=== PATIENT | male | born 1950 | race Caucasian/White ===

== ENCOUNTER 2016-11-10 00:05 | Inpatient (IN) | payer OTHER ==
[2016-11-10 12:59] LABS: ADD MORPH? NO; FRAGMENT RBC FLAG 0 (0-99); HEMOGLOBIN 15.3 g/dL (13.7-17.5); LEFT SHIFT FLG 0 (0-99); LIPEMIA HEMOLYSIS FLAG 90 (0-99); MEAN CELL HEMOGLOBIN 33.2 pg (27.9-34.1); MEAN CELL HEMOGLOBIN CONCENTR. 35.6 g/dL (32.4-36.7); MEAN CELL VOLUME 93.3 fL (81.5-99.8); MEAN PLATELET VOLUME 9.5 fL (8.7-11.7); PLATELET CLUMPS FLAG 0 (0-99); PLATELET COUNT 191 10^3/uL (150-400); RED BLOOD CELL COUNT 4.61 10^6/uL (4.40-6.38); RED CELL DISTRIBUTION WIDTH 13.1 % (11.5-15.2)
[2016-11-10 13:01] LABS: ATYPICAL LYMPHOCYTE FLAG 240 (0-99)
--- NOTE | 2016-11-10 13:10 | CPEKG ---
Heart Rate: 125 RR Interval: 480 QRSD Interval: 84 QT Interval: 312 QTC Interval: 450 QRS [place]: 82 T Wave [place]: 36 EKG Severity - ABNORMAL ECG - EKG Impression: ATRIAL FIBRILLATION, V-RATE 72-158 EKG Impression: BORDERLINE RIGHT AXIS DEVIATION Electronically Signed By: Khalif Kang 10-Nov-2016 14:38:08
[2016-11-10 13:19] LABS: APTT 28.3 SEC (23.0-38.0); INR 1.18 (0.83-1.16)
[2016-11-10 13:22] LABS: ANION GAP 8 mEq/L (8-16); CALCIUM 9.3 mg/dL (8.5-10.4); CARBON DIOXIDE 23 mEq/l (22-31); CHLORIDE 106 mEq/L (97-110); CREATININE 0.9 mg/dL (0.7-1.3); GLOMERULAR FILTRATION RATE > 60; GLUCOSE 93 mg/dL (70-100); MAGNESIUM 2.1 mg/dL (1.6-2.3); POTASSIUM 4.6 mEq/L (3.5-5.2); SODIUM 137 mEq/L (134-144)
[2016-11-10 13:35] LABS: ADD DIFF? YES; ADD SCAN? NO; SCAN POSITIVE
[2016-11-10 13:42] LABS: MACROCYTES 1+; MICROCYTES 1+; PLATELET ESTIMATE ADEQUATE (ADEQ)
[2016-11-10] MEDS ORDERED: SOTALOL HCL 80 MG TAB PO ONE ×2 (13:45→23:00)
--- NOTE | 2016-11-10 14:46 | GHP ---
DATE OF ADMISSION: 11/10/2016 PRIMARY RESIDENTIAL MANAGER: Dr. Mandie Joseph. PRIMARY EP DOCTOR: Dr. Ozzy Vincent. CHIEF COMPLAINT: Persistent atrial fibrillation. HISTORY OF PRESENT ILLNESS: The patient is a 66-year-old male with a history of microscopic colitis, PAWAN, moderate to severe TR, moderate MR, who is being admitted for sotalol titration. He has had recent persistent atrial fibrillation, despite having DC cardioversion. He has been noting increased fatigue and shortness of breath, being in atrial fibrillation though he has been on rate-controlling agent with Diltizem. He continues to have atrial fibrillation with RVR. He denies any chest pain. He has had a coronary catheterization that shows normal coronary arteries. He denies any PND or orthopnea. PAST MEDICAL HISTORY: 1. Persistent atrial fibrillation. 2. GERD. 3. Microscopic colitis. 4. PAWAN. 5. Moderate MR. 6. Moderate to severe TR. SOCIAL HISTORY: He is , and his is present in the room. He has 2 children. He is retired. He reports no tobacco products. He reports moderate alcohol intake. FAMILY HISTORY: Positive for stroke. MEDICATIONS: Outpatient medications include budesonide, Eliquis, omega-3 fatty acids, and a daily vitamin. ALLERGIES: Levaquin and penicillin. PAST SURGICAL HISTORY: Inguinal hernia repair. REVIEW OF SYSTEMS: As per HPI. A 10-point review of systems was obtained and is negative, except for what is dictated. PHYSICAL EXAM: VITAL SIGNS: BP of 140/94, heart rate 93, respirations 14, O2 saturation 94% on room air, temp of 97.5 degrees Fahrenheit. GENERAL: He is a pleasant male, in no apparent distress. HEENT: Normocephalic, atraumatic. Eyes are without scleral icterus. HEART: Irregularly irregular, with a soft systolic ejection murmur. LUNGS: Clear. ABDOMEN: Soft. SKIN: Warm and dry. PSYCH: Normal mood and affect. NEURO: No focal deficits. : No Smiley. LABORATORY DATA: CBC with WBC 8.5, hemoglobin 15.3, hematocrit 43, platelet count of 191. INR of 1.18. BMP: Sodium 137, potassium 4.6, chloride 106, CO2 23, BUN 21, creatinine 0.9, glucose 93, magnesium 2.1. Twelve-lead ECG personally interpreted demonstrates atrial fibrillation with a rapid rate of 125. IMPRESSION AND PLAN: The patient is a 66-year-old male who presents with persistent atrial fibrillation. 1. Atrial fibrillation. He has agreed to sotalol titration. Risks and benefits reviewed. We will start at 120 mg p.o. daily. He has normal renal function and normal potassium. He will be given a starting dose at 120. ECGs will be timed throughout the hospital stay. 2. Stroke prophylaxis: He is on Eliquis therapy. 3. Diet: He will be placed on a regular diet. 4. Code status: He is full code. 5. PAWAN. Continue CPAP usage while admitted. 6. Length of stay: We are planning for inpatient stay for monitoring of high- risk medication. He will also be scheduled for cardioversion prior to discharge. /[id number]/MODL MTDD
--- NOTE | 2016-11-10 16:43 | CPEKG ---
Heart Rate: 103 RR Interval: 583 QRSD Interval: 80 QT Interval: 356 QTC Interval: 466 QRS [place]: 82 T Wave [place]: 43 EKG Severity - ABNORMAL ECG - EKG Impression: ATRIAL FIBRILLATION, V-RATE 68-123 EKG Impression: BORDERLINE RIGHT AXIS DEVIATION Electronically Signed By: Khalif Kang 11-Nov-2016 12:09:40
[2016-11-10] MEDS ORDERED: SOTALOL HCL 80 MG TAB PO SCH (21:00)
[2016-11-10] MEDS ORDERED: APIXABAN 5 MG TAB PO SCH (21:00)
--- NOTE | 2016-11-11 01:16 | CPEKG ---
Heart Rate: 118 RR Interval: 508 QRSD Interval: 88 QT Interval: 356 QTC Interval: 499 QRS [place]: 81 T Wave [place]: 16 EKG Severity - ABNORMAL ECG - EKG Impression: ATRIAL FIBRILLATION, V-RATE 71-138 EKG Impression: BORDERLINE RIGHT AXIS DEVIATION EKG Impression: BORDERLINE PROLONGED QT INTERVAL Electronically Signed By: Khalif Kang 11-Nov-2016 12:09:52
[2016-11-11 05:20] LABS: INR 1.16 (0.83-1.16); PROTIME(PATIENT) 14.8 SEC (12.0-15.0)
[2016-11-11 05:22] LABS: ANION GAP 6 mEq/L (8-16); CALCIUM 8.8 mg/dL (8.5-10.4); CARBON DIOXIDE 25 mEq/l (22-31); CHLORIDE 107 mEq/L (97-110); CREATININE 0.9 mg/dL (0.7-1.3); GLOMERULAR FILTRATION RATE > 60; GLUCOSE 87 mg/dL (70-100); MAGNESIUM 2.1 mg/dL (1.6-2.3); POTASSIUM 4.5 mEq/L (3.5-5.2); SODIUM 138 mEq/L (134-144)
[2016-11-11] MEDS ORDERED: BUDESONIDE 3 MG EC CAP PO SCH (09:00)
[2016-11-11] MEDS: CALCIUM CARBONATE 500 MG CHEWABLE TAB PO SCH (09:09)
[2016-11-11] MEDS: APIXABAN 5 MG TAB PO SCH ×2 (09:09→21:01)
[2016-11-11] MEDS: BUDESONIDE 3 MG EC CAP PO SCH (09:09)
[2016-11-11] MEDS: MULTIVITAMINS 1 EACH TAB PO SCH (09:10)
[2016-11-11] MEDS: SOTALOL HCL 80 MG TAB PO SCH ×2 (09:10→21:15)
--- NOTE | 2016-11-11 09:18 | PDCARPN ---
Cardiology Progress Note Chief Complaint: AF/Sotalol titration Assessment/Plan: Assessment: 66M PMH micoscopic colitis, PAWAN/CPAP, has had persistent AF despite resolution of diarrhea. Also has had RVR even though he has been on Dilt for rate control admitted for sotalol titration. #. AF: ECG reviewed/interpreted andQTc acceptable on Sotalol 120 BID BP somewhat low but pt asx/ cont to monitor plan for cardioversion tomorrow #. PAWAN: cont CPAP #. microscopic colitis: home Budesonide continued #. DVT ppx: on home Eliquis dosing for stroke ppx with AF #. LOS: D/C likely after cardioversion 11/1211/11/16 09:14 Subjective: Tolerating Sotalol. Feels well. No dizzines, dyspnea, palps. Reviewed/Discussed With: other (Dr. Vincent) Objective: Vital Signs (8 Hrs) Temp Pulse Resp BP Pulse Ox 11/11/16 08:00 97.6 F 99 18 98/69 L 93 11/11/16 03:25 97.6 F 112 H 14 108/94 H 92 Intake/Output (24 Hrs) 11/10/16 11/11/16 11/12/16 05:59 05:59 05:59 Intake Total 850 Balance 850 Intake: Oral (ml) 850 Other: Weight 88.5 kg Intake Quantity Yes Sufficient Result Diagrams: 11/10/16 12:45 11/12/16 03:36 Telemetry: AF with variable rates. - Physical Exam Constitutional: healthy appearing, no apparent distress Eyes: PERRL Ears, Nose, Mouth, Throat: moist mucous membranes Cardiovascular: systolic murmur, irregularly irregular Respiratory: clear to auscultate bilat, no crackles Neurologic: AAOx3 Psychiatric: cooperative, interactive
--- NOTE | 2016-11-11 10:59 | CPEKG ---
Heart Rate: 122 RR Interval: 492 QRSD Interval: 86 QT Interval: 352 QTC Interval: 502 QRS [place]: 57 T Wave [place]: 3 EKG Severity - ABNORMAL ECG - EKG Impression: ATRIAL FIBRILLATION, V-RATE 88-142 EKG Impression: PROLONGED QT INTERVAL Electronically Signed By: Khalif Kang 11-Nov-2016 12:10:01
--- NOTE | 2016-11-11 22:57 | CPEKG ---
Heart Rate: 100 RR Interval: 600 QRSD Interval: 84 QT Interval: 368 QTC Interval: 475 QRS [place]: 66 T Wave [place]: 18 EKG Severity - ABNORMAL ECG - EKG Impression: ATRIAL FIBRILLATION Electronically Signed By: Khalif Kang 12-Nov-2016 07:43:29
[2016-11-12 04:43] VITALS: O2SAT 96
[2016-11-12 05:45] LABS: APTT 27.5 SEC (23.0-38.0); INR 1.17 (0.83-1.16); PROTIME(PATIENT) 14.9 SEC (12.0-15.0)
[2016-11-12 05:56] LABS: ANION GAP 9 mEq/L (8-16); CALCIUM 8.8 mg/dL (8.5-10.4); CARBON DIOXIDE 24 mEq/l (22-31); CHLORIDE 107 mEq/L (97-110); GLOMERULAR FILTRATION RATE > 60; GLUCOSE 88 mg/dL (70-100); POTASSIUM 4.4 mEq/L (3.5-5.2); SODIUM 140 mEq/L (134-144)
[2016-11-12] MEDS ORDERED: MIDAZOLAM 2 MG/2 ML VIAL IVP ONE (06:00)
[2016-11-12 08:23] VITALS: BP 101/72; PULSE 72; RESP 18; TEMP 98
[2016-11-12] MEDS: BUDESONIDE 3 MG EC CAP PO SCH (09:01)
[2016-11-12] MEDS: SOTALOL HCL 80 MG TAB PO SCH (09:02)
[2016-11-12] MEDS: MULTIVITAMINS 1 EACH TAB PO SCH (09:02)
[2016-11-12] MEDS: APIXABAN 5 MG TAB PO SCH (09:02)
[2016-11-12] MEDS: CALCIUM CARBONATE 500 MG CHEWABLE TAB PO SCH (09:06)
--- NOTE | 2016-11-12 09:08 | CPEKG ---
Heart Rate: 117 RR Interval: 513 QRSD Interval: 84 QT Interval: 352 QTC Interval: 491 QRS [place]: 66 T Wave [place]: -2 EKG Severity - ABNORMAL ECG - EKG Impression: ATRIAL FIBRILLATION, V-RATE 84-133 EKG Impression: BORDERLINE T ABNORMALITIES, INFERIOR LEADS EKG Impression: BORDERLINE PROLONGED QT INTERVAL Electronically Signed By: Khalif Kang 12-Nov-2016 10:01:44
[2016-11-12] MEDS ORDERED: PROPOFOL 200 MG/20 ML VIAL ONE (12:04)
[2016-11-12] MEDS ORDERED: LIDOCAINE 1% 5 ML SDV ONE (12:04)
--- NOTE | 2016-11-12 12:22 | CPEKG ---
Heart Rate: 56 RR Interval: 1071 P-R Interval: 184 QRSD Interval: 94 QT Interval: 460 QTC Interval: 444 P [place]: 73 QRS [place]: 71 T Wave [place]: 13 EKG Severity - NORMAL ECG - EKG Impression: SINUS RHYTHM Electronically Signed By: Khalif Kang 12-Nov-2016 13:08:07
--- NOTE | 2016-11-12 15:45 | GDS ---
DISCHARGE DIAGNOSES: 1. Persistent atrial fibrillation with rapid ventricular response, status post sotalol titration an d direct current cardioversion this admission. 2. History of microscopic colitis. 3. History of obstructive sleep apnea on CPAP. PROCEDURES: On 11/12/2106, DC cardioversion. PHYSICIAN: Ozzy Vincent MD, of electrophysiology. BRIEF HISTORY: Please see dictated H and P for complete details. In brief, the patient is a 66-yea r-old male with a history of microscopic colitis, PAWAN on CPAP, and persistent atrial fibrillation, w ho was noted to be in RVR despite being on rate controlling agents. Options were reviewed and the p atient was agreeable to sotalol titration and DC cardioversion. He proceeded to undergo DC cardiove rsion on 11/12/2016. On the day of discharge, he denies any chest pain or dyspnea. PHYSICAL EXAMINATION: VITAL SIGNS: On day of discharge, blood pressure 101/72, heart rate 72, O2 s aturation 96% on room air, temperature 98 degrees Fahrenheit. GENERAL: He is a very pleasant male, in no apparent distress. HEART: Regular rate and rhythm. LUNGS: Clear. LABORATORY DATA: CBC on day of admission: WBC 8.5, hemoglobin 15.3, hematocrit 43, platelet count 191. BMP: Sodium 140, potassium 4.4, chloride 107, CO2 of 24, BUN 28, creatinine 1, glucose 88. A 12-lead ECG at time of discharge shows sinus rhythm. RESULTS PENDING: None. DIET: Per previous. ACTIVITY: As tolerated. DISCHARGE MEDICATIONS: Please see medication reconciliation for complete details. He is being disc harged on his home apixaban, budesonide, calcium and multivitamin. His new medication is sotalol 12 0 p.o. b.i.d. DISCHARGE INSTRUCTIONS: 1. Follow up with Dr. Vincent in 1 week's time. 2. Follow up with Dr. Joseph as scheduled. /[id number]/MODL
--- NOTE | 2016-11-12 16:28 | EPPROC ---
Electrophysiology Procedure Note: Procedure:CV Indication: AF Procedure: Pt sedated by anesthesia staff. Once sedated, DCCV at 200J given. Pt converted to SR Conclusion: Successful CV Patient Problems: Problems Problem Status Onset Afib Acute
[2016-11-12] MEDS ORDERED: APIXABAN 5 MG TAB PO SCH (21:00)
[2016-11-13] MEDS ORDERED: BUDESONIDE 3 MG EC CAP PO SCH (09:00)
== END 2016-11-12 16:07 | disposition home or self-care (01) | DRG 310 ==
LOC: UNDOADMOB 05:13 → F2W 05:13 → OBSVTOIN 12:30
PROVIDERS: ADMIT Internal Medicine Cardiovascular Disease; ATTEND Internal Medicine Cardiovascular Disease
PROC: 5A2204Z Restoration of Cardiac Rhythm, Single (ICD-10-PCS; principal; 2016-11-12)
DX: I48.1 Persistent atrial fibrillation (principal); G47.33 Obstructive sleep apnea (adult) (pediatric); K21.9 Gastro-esophageal reflux disease without esophagitis; I08.1 Rheumatic disorders of both mitral and tricuspid valves
CPT/HCPCS: J2704

== ENCOUNTER → 2016-11-19 | Outpatient (CLI) | payer OTHER | LOC: BHFA 11:30 | PROVIDERS: ATTEND Internal Medicine Cardiovascular Disease | DX: I48.91 Unspecified atrial fibrillation (principal) ==

== ENCOUNTER → 2017-01-03 | Outpatient (CLI) | payer OTHER | LOC: BHFA 13:15 | PROVIDERS: ATTEND Internal Medicine Cardiovascular Disease | DX: I48.91 Unspecified atrial fibrillation (principal) ==

== ENCOUNTER → 2017-02-18 | Outpatient (CLI) | payer OTHER | LOC: BHFA 11:00 | PROVIDERS: ATTEND Internal Medicine Cardiovascular Disease | DX: I48.91 Unspecified atrial fibrillation (principal); I07.1 Rheumatic tricuspid insufficiency; I34.0 Nonrheumatic mitral (valve) insufficiency; R19.7 Diarrhea, unspecified; R06.00 Dyspnea, unspecified ==

== ENCOUNTER → 2018-01-04 | Outpatient (CLI) | payer OTHER | LOC: BHFA 11:30 | PROVIDERS: ATTEND Internal Medicine Cardiovascular Disease | DX: I48.91 Unspecified atrial fibrillation (principal) ==

== ENCOUNTER → 2018-01-23 | Outpatient (CLI) | payer OTHER | LOC: BHFA 13:30 | PROVIDERS: ATTEND Internal Medicine Cardiovascular Disease | DX: I48.91 Unspecified atrial fibrillation (principal) ==

== ENCOUNTER → 2018-02-22 | Outpatient (CLI) | payer OTHER | LOC: BHLMT 10:30 | PROVIDERS: ATTEND Internal Medicine Cardiovascular Disease | DX: I48.91 Unspecified atrial fibrillation (principal) | CPT/HCPCS: 93005-PO ==

== ENCOUNTER → 2018-09-25 | Outpatient (CLI) | payer OTHER | LOC: FIMAGING 13:10 | PROVIDERS: ATTEND Internal Medicine | DX: Z13.820 Encounter for screening for osteoporosis (principal); M85.89 Other specified disorders of bone density and structure, multiple sites ==

== ENCOUNTER → 2019-01-08 | Outpatient (CLI) | payer OTHER | LOC: BHFA 15:30 | PROVIDERS: ATTEND Internal Medicine Cardiovascular Disease | DX: I48.91 Unspecified atrial fibrillation (principal) ==

== ENCOUNTER → 2019-01-11 | Outpatient (CLI) | payer OTHER | LOC: BHFA 09:00 | PROVIDERS: ATTEND Internal Medicine Cardiovascular Disease | DX: I48.0 Paroxysmal atrial fibrillation (principal) ==